=== PATIENT | male | born 1950 | race Caucasian/White ===

== ENCOUNTER 2016-12-27 08:31 | Emergency (ER) | payer BC ==
--- NOTE | 2016-12-27 09:05 | EDM.PDOC ---
ED HPI LOWER BACK PAIN/INJURY - General Chief Complaint: Back Pain or Injury Stated Complaint: BACK INJURY Time Seen by Provider: 12/27/16 08:50 Source: Reports: Patient History Limitations: Reports: No limitations - History of Present Illness INITIAL COMMENTS - FREE TEXT/NARRATIVE: 66 yo male fell several days ago striking his left flank area. He has had minimal pain to the area until about 0400h today when he rolled over in bed an felt a pop in the same area associated with an increase in his pain. Now lifting or coughing also reproduce his pain. He has not noticed any gross hematuria or SOB. No pHx of any bone fractures. No self tx today. Was working around his own home when he fell last week. 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 (see below) (none) - Related Data Allergies/ADRs: Allergies Allergy/AdvReac Type Severity Reaction Status Date / Time No Known Allergies Allergy Verified 12/27/16 08:43 Home Meds: Home Meds Acetaminophen/HYDROcodone [[place] 325-5 MG] 1 - 2 tab PO Q4H PRN #30 tab [Rx] Ibuprofen 600 mg PO Q6H PRN #30 tablet 12/27/16 [Rx] Past Medical History - Past Health History Medical/Surgical History: Denies Medical/Surgical History Social & Family History - Family History Family Medical History: Noncontributory - Tobacco Use Smoking Status *Q: Never Smoker - Caffeine Use Caffeine Use: Reports: Coffee, Soda, Tea - Recreational Drug Use Recreational Drug Use: No ED ROS GENERAL - Review of Systems Review Of Systems: See Below Constitutional: Reports: no symptoms Respiratory: Reports: other (mild pain with deep breathing, more pain with coughing.) Cardiovascular: Reports: No symptoms Endocrine: Reports: no symptoms GI/Abdominal: Reports: No symptoms : Reports: no symptoms. Denies: hematuria Musculoskeletal: Reports: back pain (L flank area. ) Skin: Reports: no symptoms ED EXAM,LOWER BACK PAIN/INJURY - Physical Exam Exam: See Below Exam Limited By: No limitations General Appearance: alert, WD/WN, no apparent distress Eye Exam: bilateral eye: normal inspection Ears: normal external exam, normal canal, hearing grossly normal, normal TMs Nose: normal inspection, normal mucosa, no blood Throat/Mouth: Normal inspection, Normal lips, Normal teeth, Normal gums, Normal oropharynx, Normal voice, No airway compromise Head: atraumatic, normocephalic Neck: normal inspection, supple Respiratory/Chest: no respiratory distress, lungs clear, normal breath sounds, no accessory muscle use Cardiovascular: regular rate, rhythm, no edema GI/Abdominal: soft, non tender Back Exam: normal inspection, full range of motion, other (point tenderness over a single rib in the L flank area. No crepitus. ). No: CVA tenderness (R), CVA tenderness (L) Extremities: normal inspection, normal range of motion, non-tender, no pedal edema Neurological: alert, normal mood/affect, CN II-XII intact, no motor/sensory deficits, oriented x 3 Psychiatric: normal affect, normal mood Skin Exam: Warm, Dry, Intact, Normal color, No rash Lymphatic: no adenopathy Course - Vital Signs Last Recorded V/S: Last Vital Signs Temp 36.2 C 12/27/16 08:35 Pulse 73 12/27/16 08:35 Resp 14 12/27/16 08:35 BP 128/73 12/27/16 08:35 Pulse Ox 97 12/27/16 08:35 Departure - Departure Time of Disposition: 09:09 Disposition: Home, Self-Care 01 Condition: good Clinical Impression: Left rib fracture Qualifiers: Encounter type: initial encounter Rib fracture type: single rib Fracture type: closed Qualified Code(s): S22.32XA - Fracture of one rib, left side, initial encounter for closed fracture Prescriptions: Acetaminophen/HYDROcodone [[place] 325-5 MG] 1 - 2 tab PO Q4H PRN #30 tab PRN Reason: Pain Ibuprofen 600 mg PO Q6H PRN #30 tablet PRN Reason: Pain Referrals: PCP,None [Primary Care Provider] - Forms: ED Department Discharge Care Plan Goals: Activity as tolerated. Take the pain medicines prescribed as needed for pain relief. Recheck with a doctor of your choice early next week. Return as needed.
== END 2016-12-27 09:10 | disposition home or self-care (01) ==
LOC: FB.ED 08:31
CPT/HCPCS: 99283